=== PATIENT | male | born 1965 | race Caucasian/White ===

== ENCOUNTER → 2024-08-21 08:14 | Outpatient (REF) | payer BC, SELFPAY ==
[2024-08-21 12:54] LABS: Free T4 1.22 ng/dl (0.78-2.19)
[2024-08-21 12:59] LABS: Glycohemoglobin (HgbA1c) 5.5 % (4.0-5.6)
[2024-08-21 13:08] LABS: TSH 0.43 uIU/ml (0.47-4.68)
== END ==
LOC: HWRAD 08:14
PROVIDERS: ATTENDING PHYSICIAN Surgery; FAMILY PHYSICIAN Family Medicine
DX: N43.42 Spermatocele of epididymis, multiple (principal); R73.01 Impaired fasting glucose; R63.4 Abnormal weight loss
CPT/HCPCS: 36415; 76870; 83036; 84439; 84443; 93976

== ENCOUNTER 2024-12-04 17:57 | Emergency (ER) | payer BC, SELFPAY ==
[2024-12-04 18:02] VITALS: BP 173/98
[2024-12-04 18:26] LABS: % Basophils 0.3 % (0-2); % Eosinophils 1.4 % (0-6); % Immature Granulocytes 0.1 % (0-0.5); % Lymphocytes 19.9 % (20.5-51.1); % Monocytes 6.7 % (1.7-9.3); % Neutrophils 71.6 % (42.2-75.2); Absolute Eosinophils 0.1 10^3/uL (0-0.7); Absolute Monocytes 0.7 10^3/uL (0.1-0.6); Absolute Neutrophils 7.3 10^3/uL (1.4-6.5); Hematocrit 41.7 % (39.0-52.0); Hemoglobin 15.2 g/dL (13.0-18.0); Mean Corp Hgb Conc. 36.5 g/dL (33.0-37.0); Mean Corpuscular Hgb 32.1 pg (27.0-31.0); Mean Platelet Volume 9.3 fL (7.4-10.4); Nucleated Red Blood Cells % 0 % (-); Platelet Count 214 10^3/uL (130-400); Red Blood Cell Count 4.74 10^6/uL (4.70-6.10); White Blood Cell Count 10.2 10^3/uL (4.8-10.8)
[2024-12-04 18:44] VITALS: BP 141/89
[2024-12-04 18:53] LABS: ALT (SGPT) 40 U/L (0-50); AST (SGOT) 28 U/L (17-59); Albumin 4.7 g/dl (3.5-5.0); Alkaline Phosphatase 68 U/L (38-126); Blood Urea Nitrogen 21 mg/dl (9-20); Calcium 9.6 mg/dl (8.4-10.2); Carbon Dioxide 25 mmol/L (22-30); Chloride 104 mmol/L (98-107); Glucose 145 mg/dl (70-99); Potassium 3.3 mmol/L (3.5-5.1); Sodium 139 mmol/L (135-145); Total Bilirubin 1.1 mg/dl (0.2-1.3); Total Protein 7.2 g/dl (6.3-8.2); Troponin I < 0.012 ng/ml; eGFR > 60.00
[2024-12-04 19:00] VITALS: BP 136/92
[2024-12-04 19:25] VITALS: BMI 28.3
[2024-12-04 19:39] VITALS: BP 141/84
--- NOTE | 2024-12-04 22:26 | ED.GENMED ---
History of Present Illness
General
Chief Complaint: Chest Pain
Source: patient
Exam Limitations: none
Time Seen by Provider: 12/04/24 19:19
Nursing documentation reviewed up to this point in time: agreed with
History of Present Illness
History of Present Illness:
Patient to ED for eval of chest pain. States he developed sharp mid sternal pain yesterday. Pain is intermittent and sharp, Resolved on own. States he also felt fatigued and 'sweaty'. Brought to ED by spouse for eval. He is currently symtpoms
free.
Past History
Past History
ED Past Medical History: CAD and HTN
Review of Systems
Review of Systems
Allergies reviewed?: Yes
All Other Systems: ROS reviewed and negative except as documented in HPI and ROS
EENT: Reports no symptoms
Respiratory: Reports no symptoms
Cardiac: Reports chest pain
ABD/GI: Reports no symptoms
: Reports no symptoms
Musculoskeletal: Reports no symptoms
Skin: Reports no symptoms
Neurological: Reports no symptoms
Psychiatric: Reports no symptoms
Phy Exam
General Physical Exam
General Presentation: well appearing and no apparent distress
General age: appears stated age
General Skin: warm and dry
General Habitus: normal
Cardiovascular Exam
Cardiovascular Exam: regular rate/rhythm and no edema
Pulmonary Exam
Pulmonary Exam: lungs clear and no respiratory distress
Gastrointestinal Exam
Gastrointestinal Exam: normal bowel sounds, non tender, soft and no organomegaly
Musculoskeletal Exam
Musculoskeletal Exam: full ROM and neuro vasc intact
Skin Exam
Skin Exam: normal color and warm/dry
Psychiatric Exam
Psychiatric Exam: normal mood/affect
Scores
Heart Score for Chest Pain Patients
STEMI patient?: No
History: Slightly or Non-Suspicious
ECG: Normal
Age: >45 - <65 years
Risk Factors: 1 or 2 Risk Factors
Troponin: </= Normal Limit
Heart Score for Chest Pain Patients: 2
Heart Score Risk: 2.5% MACE over next 6 weeks
Course
Orders/Labs/Results
Orders:
Orders
12/04/24 17:59
Electrocardiogram (*1) Urgent
Reason for Study: Chest Pain
EKG- Treatment ONCE
12/04/24 18:21
Complete Blood Count/With Diff Urgent
Comprehensive Metabolic Panel Urgent
Troponin I Urgent
Abnormal Lab Results
12/04/24
18:21
MCH 32.1 H pg
(27.0-31.0)
Absolute Neuts (auto) 7.3 H 10^3/uL
(1.4-6.5)
Absolute Monos (auto) 0.7 H 10^3/uL
(0.1-0.6)
Lymphocytes % 19.9 L %
(20.5-51.1)
Potassium 3.3 L mmol/L
(3.5-5.1)
BUN 21 H mg/dl
(9-20)
Glucose 145 H mg/dl
(70-99)
12/04/24 18:21
12/04/24 18:21
Vital Signs
Initial and Last Documented VS:
Initial Vital Signs
Temp Pulse Resp BP Pulse Ox
98.6 F 108 20 173/98 96
12/04/24 18:02 12/04/24 18:02 12/04/24 18:02 12/04/24 18:02 12/04/24 18:02
Last Documented Vital Signs
Temp Pulse Resp BP Pulse Ox
98.6 F 91 20 141/84 97
12/04/24 18:02 12/04/24 19:30 12/04/24 19:30 12/04/24 19:39 12/04/24 19:30
*Radiology
Radiology exam reviewed: radiology read reviewed
*Pulse Oximetry
Patient hypoxic: no
*EKG
Interpretation: normal
Rate: normal
Rhythm: sinus
*Critical Care Note
Total Time (30-74mins, 75-104mins- exclusive of procedures): Not Applicable
Update Note
Update Note:
Patient to ED for report of intermittent sharp chest pain yesterday associated with fatigue. He remains asymptomatic in ED. Labs reviewed EKG NSR, Troponin neg. Mildly hypertensive otherwise VSS. WIll discarge home. He is a patient of
Gary BLANTON. Patient will call on Saturday for follow up appt. He was given instructions on s/s to return to ED and he is agreeable to plan.
ED Attending Note
-
Portions of this chart may have been created with voice recognition software.� Occasional wrong word or��sound alike� substitutions may have occurred due to the inherent limitations of voice recognition software.
Discharge Plan
Departure
Patient Disposition: Home (Routine Discharge)
Date of Disposition: 12/04/24
Time of Disposition: 19:35
Patient with high blood pressure during this ER visit?: Yes
Condition: Good
Covid-19: Not Applicable
Discharge Problem:
Chest pain
Instructions: Chest Pain DCA Follow Up
Activity Restrictions/Additional Instructions:
Return to the emergency department immediately for any changes in/worsening of your symptoms.
Interventions
Interventions:
*Risk Screen - Suicide Last Done: 12/04/24 18:02
*General Assessment Last Done: 12/04/24 18:02
*Neglect/Abuse Screening Last Done: 12/04/24 18:02
*ED- Fall Risk Assessment Last Done: 12/04/24 19:25
*ED COVID-19 Vaccine History Last Done: 12/04/24 18:02
*Nursing Disposition Last Done: 12/04/24 19:45
ED- Cardiac Assessment Last Done: 12/04/24 19:25
Discharge Date and Time
Discharge Date/Time: 12/04/24 19:45
Print Language: [place]
== END 2024-12-04 19:45 | disposition home or self-care (01) ==
LOC: EMR 17:57
PROVIDERS: EMERGENCY PHYSICIAN Emergency Medicine; FAMILY PHYSICIAN Family Medicine
DX: R07.89 Other chest pain (principal); I10 Essential (primary) hypertension
CPT/HCPCS: 99284; 80053; 84484; 85025; 93005

== ENCOUNTER → 2024-12-11 07:41 | Outpatient (REF) | payer BC, SELFPAY | LOC: RCS 07:41 | PROVIDERS: ATTENDING PHYSICIAN Nurse Practitioner; FAMILY PHYSICIAN Family Medicine | DX: I10 Essential (primary) hypertension (principal); R07.89 Other chest pain | CPT/HCPCS: 93017 ==